=== PATIENT | female | born 1965 ===

== ENCOUNTER 2017-11-23 09:32 | Day surgery (SDC) | payer SELFPAY ==
[2017-08-12 09:04] VITALS: BMI 23.0
[2017-11-23] MEDS ORDERED: Lactated Ringer's 500 ML IV ONE (10:36)
[2017-11-23 11:01] VITALS: O2SAT 100
--- NOTE | 2017-11-23 11:39 | CP.SDSHP ---
Same Day Surgery H & P - History Proposed Procedure: Colonoscopy Pre-Op Diagnosis: Colon cancer screening - Previous Medical/Surgical History Pain: 0. No Pain Previous Surgical History: Right foot surgery - Allergies Allergies: Allergies No Known Allergies Allergy (Verified 11/23/17 10:34) - Physical Exam General Appearance: NAD Vital Signs: Vital Signs 11/23/17 10:59 Temperature 98.3 F Pulse Rate 70 Respiratory 16 Rate Blood Pressure 142/88 O2 Sat by Pulse 100 Oximetry Mental Status: Alert & Oriented x3 Neuro: WNL Heart: WNL Lungs: WNL GI: WNL - {Optional Preform as Required} Abdomen: WNL - Impression Impression: Proceed with colonoscopy Pt. Evaluated Today:Candidate for Anesthesia & Procedure: Yes - Date & Time Date: 11/23/17 Time: 11:00 Short Stay Discharge - Short Stay Discharge Admitting Diagnosis/Reason for Visit: Z12.11 Disposition: HOME/ ROUTINE Referrals: Cecelia Curran MD [Primary Care Provider] -
[2017-11-23 12:14] VITALS: BP 120/77; TEMP 97
[2017-11-23 12:27] VITALS: PULSE 65; RESP 15
== END 2017-11-23 12:52 | disposition home or self-care (01) ==
LOC: H.ENDO 09:32
PROVIDERS: ATTEND Internal Medicine Gastroenterology
DX: Z12.11 Encounter for screening for malignant neoplasm of colon (principal); K64.0 First degree hemorrhoids
CPT/HCPCS: 45378; J7120

== ENCOUNTER 2018-10-10 08:11 | Emergency (ER) | payer OTHER ==
[2018-10-10 08:13] VITALS: BMI 26.0
[2018-10-10] MEDS ORDERED: Albuterol 0.083% Inhal Sol (2.5 mg/3 mL) UD INH STA (08:50)
[2018-10-10] MEDS ORDERED: Albuterol 0.042% Inhal Sol (1.25 mg/3 mL) UD ONE (09:03)
--- NOTE | 2018-10-10 09:04 | ED PDOC ---
History of Present Illness History of Present Illness: 52 year old female with no significant medical history presents to the ED for evaluation of cough, throat pain, body aches and tactile fever, onset three days ago. Patient reports intermittent shortness of breath and chest pain with cough. She has a fever of 100 degrees F. Denies any other complaints. PMD: [facility] Clinic HPI: Influenza Time Seen by Provider: 10/10/18 08:31 Chief Complaint: Cough, Cold, Congestion Chief Complaint (Provider): Cough, Cold, Congestion History Per: Patient Exam Limitations: no limitations Onset/Duration Of Symptoms: Days (x 3) Symptoms include: fever, bodyaches, sore throat, cough Past Medical History Reviewed: Historical Data, Nursing Documentation, Vital Signs Vital Signs: Last Vital Signs Temp 100.1 F H 10/10/18 08:38 Pulse 108 H 10/10/18 08:38 Resp 18 10/10/18 08:13 BP 143/91 H 10/10/18 08:13 Pulse Ox 95 10/10/18 08:38 - Medical History PMH: No Chronic Diseases - Surgical History Other surgeries: right foot - Family History Family History: States: Unknown Family Hx - Social History Current smoker - smoking cessation education provided: No Alcohol: None - Home Medications Home Medications: Ambulatory Orders Medication Instructions Recorded Erythromycin 0.5% [Erythromycin] 0.5 in OS QID 7 Days #1 tube 03/14/18 Ibuprofen [Motrin] 600 mg PO Q6H PRN #20 tab 03/14/18 Albuterol HFA [Ventolin HFA 90 1 puff IH Q4 #1 inhaler 10/10/18 mcg/actuation (8 g)] Azithromycin [Z-Ministerio] 250 mg PO ASDIR #6 tab 10/10/18 - Allergies Allergies/Adverse Reactions: Allergies Allergy/AdvReac Type Severity Reaction Status Date / Time No Known Allergies Allergy Verified 11/23/17 10:34 Review of Systems ROS Statement: Except As Marked, All Systems Reviewed And Found Negative Constitutional: Positive for: Fever Cardiovascular: Positive for: Chest Pain (after coughing) Respiratory: Positive for: Cough, Shortness of Breath (intermittent). Negative for: Hemoptysis, Sputum Physical Exam - Reviewed Nursing Documentation Reviewed: Yes Vital Signs Reviewed: Yes - Physical Exam Appears: Positive for: No Acute Distress (febrile) Head Exam: Positive for: ATRAUMATIC, NORMAL INSPECTION, NORMOCEPHALIC Skin: Positive for: Normal Color, Warm, Dry Eye Exam: Positive for: Normal appearance, EOMI, PERRL Neck: Positive for: Normal, Painless ROM, Supple Cardiovascular/Chest: Positive for: Tachycardia (regular rhythm). Negative for: Murmur Gastrointestinal/Abdominal: Positive for: Normal Exam, Soft. Negative for: Tenderness Extremity: Positive for: Normal ROM (x 4). Negative for: Deformity Neurological/Psych: Positive for: Awake, Alert, Normal Tone, Oriented (x 3). Negative for: Motor/Sensory Deficits Medical Decision Making Medical Decision Makin:50 Impression: throat pain, cough and body aches Differential diagnoses include but are not limited to: influenza, strep, other viral syndrome Initial Plan: --EKG --CXR --Albuterol 0.083% 2.5 mg INH --Peak flow pre/post --Influenza AB --Rapid strep 09:52 CXR FINDINGS: LINES AND TUBES: None. LUNG AND PLEURA: The lungs are well inflated and clear. No pleural effusion or pneumothorax. HEART AND MEDIASTINUM: The heart is not enlarged. No aortic atherosclerotic calcifications present. The hilar and mediastinal contours are within normal limits. SKELETAL STRUCTURES: The bony structures are within normal limits for the patient's age. VISUALIZED UPPER ABDOMEN: Normal. OTHER FINDINGS: None. IMPRESSION: No active pulmonary disease. 10:29 Labs reveal no clinically significant abnormalities. --- Scribe Attestation: Documented by Phuong Bateman, acting as a scribe for Mimi Gates MD Provider Scribe Attestation: All medical record entries made by the Scribe were at my direction and personally dictated by me. I have reviewed the chart and agree that the record accurately reflects my personal performance of the history, physical exam, medical decision making, and the department course for this patient. I have also personally directed, reviewed, and agree with the discharge instructions and disposition. - ECG O2 Sat by Pulse Oximetry: 95 - Progress Re-evaluation Time: 10:38 Condition: Re-examined, Improved Disposition - Clinical Impression Clinical Impression: Bronchitis, URI (upper respiratory infection) - Patient ED Disposition Is Patient to be Admitted: No Doctor Will See Patient In The: Office Counseled Patient/Family Regarding: Studies Performed, Diagnosis, Need For Followup - Disposition Referrals: [facility] [Outside] Disposition: Routine/Home Disposition Time: 10:38 Condition: GOOD Additional Instructions: TATE KWOK, thank you for letting us take care of you today. Your provider was Mimi Gates MD and you were treated for COUGH. The emergency medical care you received today was directed at your acute symptoms. If you were pres cribed any medication, please fill it and take as directed. It may take several days for your symptoms to resolve. Return to the Emergency Department if your symptoms worsen, do not improve, or if you have any other problems. Please contact your doctor or call one of the physicians/clinics you have been referred to that are listed on the Patient Visit Information form that is included in your discharge packet. Bring any paperwork you were given at discharge with you along with any medications you are taking to your follow up visit. Our treatment cannot replace ongoing medical care by a primary care provider outside of the emergency department. Thank you for allowing the [facility] team to be part of your care today. Prescriptions: Albuterol HFA [Ventolin HFA 90 mcg/actuation (8 g)] 1 puff IH Q4 #1 inhaler Azithromycin [Z-Ministerio] 250 mg PO ASDIR #6 tab Instructions: Acute Bronchitis Forms: [employer] (Argentine) Print Language: NAURUAN
[2018-10-10] MEDS ORDERED: Albuterol 0.083% Inhal Sol (2.5 mg/3 mL) UD ONE (09:10)
--- NOTE | 2018-10-10 09:40 | RAD ---
Date of service: 10/10/2018 HISTORY: Cough and fever COMPARISON: 07/21/2017. TECHNIQUE: Chest PA and lateral FINDINGS: LINES AND TUBES: None. LUNG AND PLEURA: The lungs are well inflated and clear. No pleural effusion or pneumothorax. HEART AND MEDIASTINUM: The heart is not enlarged. No aortic atherosclerotic calcifications present. The hilar and mediastinal contours are within normal limits. SKELETAL STRUCTURES: The bony structures are within normal limits for the patient's age. VISUALIZED UPPER ABDOMEN: Normal. OTHER FINDINGS: None. IMPRESSION: No active pulmonary disease.
[2018-10-10 10:52] VITALS: BP 120/78; RESP 20; TEMP 99; O2SAT 98
[2018-10-10 10:54] VITALS: PULSE 88
--- NOTE | 2018-10-10 15:12 | CARD ---
APPROVED REPORT Date of service: 10/10/2018 EKG Measurement Heart [id number] <Conclusion> Sinus tachycardia Rightward axis Borderline ECG
== END 2018-10-10 10:54 | disposition home or self-care (01) ==
LOC: H.ER 08:11
DX: J40 Bronchitis, not specified as acute or chronic (principal); J06.9 Acute upper respiratory infection, unspecified